=== PATIENT | male | born 1985 | race Caucasian/White ===

== ENCOUNTER 2022-12-18 14:55 | Outpatient (CLI) | payer OTHER, SELFPAY | END 2022-12-18 14:56 | disposition home or self-care (01) | LOC: LKVREF 14:56 | PROVIDERS: PCP Family Medicine; Visit Provider Family Medicine | DX: Z00.00 Encounter for general adult medical examination without abnormal findings (principal); I10 Essential (primary) hypertension | CPT/HCPCS: 80048 ==

== ENCOUNTER 2024-02-12 13:15 | Outpatient (CLI) | payer BC, SELFPAY | END 2024-02-12 13:16 | disposition home or self-care (01) | PROVIDERS: PCP Family Medicine; Visit Provider Family Medicine | DX: I10 Essential (primary) hypertension (principal); L29.9 Pruritus, unspecified; Z13.29 Encounter for screening for other suspected endocrine disorder | CPT/HCPCS: 80061; 80076; 84443 ==